=== PATIENT | female | born 1960 | race Caucasian/White ===

== ENCOUNTER 2020-06-23 23:24 | Emergency (ER) | payer BC ==
--- NOTE | 2020-06-24 00:22 | ER Document Report ---
ED Medical Screen (RME) - General Chief Complaint: Leg Pain Stated Complaint: LEFT LEG PAIN Time Seen by Provider: 06/24/20 00:10 Primary Care Provider: VERONICA NGO MD [Primary Care Provider] - Follow up as needed Mode of Arrival: Wheelchair Information source: Patient Notes: Patient is a 59-year-old female comes emergency room with multiple somatic complaints. Patient states that she sees Dr. Nunez who is sent her to the emergency room because she has been recently diagnosed with hypercalcemia and hyperparathyroidism. Patient states that she has aches and pains all over her body but primarily her right knee and left arm. She also has a history of hypertension depression, bipolar disease and alcohol use. Patient also is a smoker. She states he drinks between 4-5 beers almost every day but mostly 4-5 times a week. Patient states that she has been sent here by Dr. Nunez for evaluation of her hypercalcemia and for intervention to be done. Physical examination: Patient is a well-nourished well-developed 59-year-old female is in no apparent distress on examination tonight. Patient is very histrionic and has multiple complaints to include right knee pain left elbow pain and all body pains. Next line cardiac: Patient has a regular rate and rhythm without any murmurs. Lungs: Bilateral breath sounds breath sounds increased clear auscultation. Abdomen: Bowel sounds present all 4 quads nontender to palpate. Next Lower extremities. Examination patient's right knee in a sitting position does not show any laxity in any direction. She has good distal pulses on the right foot. Further examination shows there to be no crepitus felt with passive range of motion in a sitting position. Upper extremity right elbow. Again no notable swelling or edema to the right elbow full range of motion is noted no crepitus is felt. Distal pulses are normal. I have greeted and performed a rapid initial assessment of this patient. A comprehensive ED assessment and evaluation of the patient, analysis of test results and completion of the medical decision making process will be conducted by additional ED providers. Dictation of this chart was performed using voice recognition software; therefore, there may be some unintended grammatical errors. - Related Data Allergies/Adverse Reactions: hydrocodone bitartrate [From Vicodin] Allergy (Intermediate, Verified 06/23/20 23:49) itching Sulfa (Sulfonamide Antibiotics) Allergy (Intermediate, Verified 06/23/20 23:49) itching Contrast dye Allergy (Severe, Uncoded 07/27/11 11:14) Syncope Past Medical History - Social History Frequency of alcohol use: None Drug Abuse: None - Past Medical History Cardiac Medical History: Reports: Hx Hypertension Denies: Hx Coronary Artery Disease, Hx Heart Attack Pulmonary Medical History: Denies: Hx Asthma, Hx Bronchitis, Hx COPD, Hx Pneumonia Neurological Medical History: Denies: Hx Cerebrovascular Accident, Hx Seizures Musculoskeltal Medical History: Denies Hx Arthritis Past Surgical History: Denies: Hx Pacemaker - Immunizations Hx Diphtheria, Pertussis, Tetanus Vaccination: - unknown Physical Exam - Vital signs Vitals: Temp Pulse Resp BP Pulse Ox 97.4 F 73 16 158/78 H 99 06/23/20 23:34 06/23/20 23:34 06/23/20 23:34 06/23/20 23:34 06/23/20 23:34 Course - Vital Signs Vital signs: Temp Pulse Resp BP Pulse Ox 97.4 F 73 16 158/78 H 99 06/23/20 23:34 06/23/20 23:34 06/23/20 23:34 06/23/20 23:34 06/23/20 23:34 Doctor's Discharge - Discharge Referrals: VERONICA NGO MD [Primary Care Provider] - Follow up as needed
--- NOTE | 2020-06-24 02:21 | RADIOLOGY REPORT (SQ) ---
CLINICAL HISTORY: infection COMPARISON: None. TECHNIQUE: XR TIBIA FIBULA 2 VIEWS 06/24/2020 1:41 AM SPECIAL PROCEDURES TECH FINDINGS: There is no fracture. Joint spaces are preserved. Soft tissues are unremarkable. IMPRESSION: No acute osseous findings.
[2020-06-24 02:57] LABS: ABSOLUTE BASOPHILS # (AUTO) 0.1 10^3/uL (0.0-0.2); ABSOLUTE EOSINOPHILS # (AUTO) 0.5 10^3/uL (0.0-0.6); ABSOLUTE LYMPHOCYTES (AUTO) 2.6 10^3/uL (0.5-4.7); ABSOLUTE MONOCYTES (AUTO) 0.6 10^3/uL (0.1-1.4); ABSOLUTE NEUT (AUTO) 5.1 10^3/uL (1.7-8.2); EOSINOPHILS % (AUTO) 5.5 % (0-6); HEMATOCRIT 39.5 % (36.0-47.0); HEMOGLOBIN 13.7 g/dL (12.0-15.5); LYMPHOCYTES % (AUTO) 29.6 % (13-45); MEAN CORPUSCULAR HEMOGLOBIN 32.1 pg (27.0-33.4); MEAN CORPUSCULAR HGB CONC 34.6 g/dL (32.0-36.0); MEAN CORPUSCULAR VOLUME 93 fl (80-97); MONOCYTES % (AUTO) 6.9 % (3-13); PLATELET COUNT 224 10^3/uL (150-450); RED BLOOD COUNT 4.26 10^6/uL (3.72-5.28); RED CELL DISTRIBUTION WIDTH 13.7 % (11.5-14.0); TOTAL CELLS COUNTED % (AUTO) 100 %; WHITE BLOOD COUNT 8.9 10^3/uL (4.0-10.5)
[2020-06-24 03:05] LABS: ALBUMIN 4.3 g/dL (3.5-5.0); ALKALINE PHOSPHATASE 80 U/L (38-126); ANION GAP 11 (5-19); ASPARTATE AMINO TRANSFERASE 28 U/L (14-36); BILIRUBIN,DIRECT 0.2 mg/dL (0.0-0.4); BILIRUBIN,TOTAL 0.5 mg/dL (0.2-1.3); BLOOD UREA NITROGEN 17 mg/dL (7-20); CALCIUM 9.4 mg/dL (8.4-10.2); CARBON DIOXIDE 27 mmol/L (22-30); CHLORIDE 100 mmol/L (98-107); GLUCOSE 130 mg/dL (75-110); POTASSIUM 4.7 mmol/L (3.6-5.0); TOTAL PROTEIN 6.9 g/dL (6.3-8.2)
[2020-06-24] MEDS ORDERED: DOXYCYCLINE HYCLATE 100 MG TABLET PO ONE (08:04)
--- NOTE | 2020-06-24 08:12 | ER Document Report ---
ED Extremity Problem, Lower - General Chief Complaint: Leg Pain Stated Complaint: LEFT LEG PAIN Time Seen by Provider: 06/24/20 00:10 Primary Care Provider: VERONICA NGO MD [COMMUNITY BASED STAFF] - Follow up as needed Mode of Arrival: Wheelchair Notes: HPI: 59-year-old female who presents today with some redness to the anterior left lower hernadez/tibia region. She denies any trauma, fevers, vomiting, calf pain or leg swelling, chest pain or shortness of breath. Patient did see her primary care physician yesterday and was started on Keflex. She is only taken 1 dose. Patient was started on Metformin yesterday as well. Patient does take estrogen replacement therapy. No history of DVT/PE. 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 She is followed by specialist. She states that that is a chronic condition with no exacerbation. HUBER: See HPI All other review of systems reviewed and otherwise negative Reviewed vital signs and nursing note as charted by RN. PHYSICAL EXAM: CONSTITUTIONAL: Alert and oriented and responds appropriately to questions. Well-appearing; well-nourished HEAD: Normocephalic; atraumatic NECK: Supple without meningismus; non-tender; no cervical lymphadenopathy, no masses CARD: Regular rate and rhythm; no murmurs; symmetric distal pulses RESP: Normal chest excursion without splinting or tachypnea; breath sounds clear and equal bilaterally ABD/GI: Normal bowel sounds; non-distended; soft, non-tender BACK: The back appears normal and is non-tender to palpation EXT: Normal ROM in all joints; no obvious calf pain or leg swelling; no edema SKIN: Patient does have chronic appearing nonerythematous lesions to the lower extremity which she states have been there for extended period of time. She has a separate area to the left anterior distal tibia that is erythematous and blanching. Strong distal pulses. No other signs of lesions noted NEURO: CN 2-12 intact; 5/5 bilateral upper and lower extremity strength with sensation intact to light touch PSYCH: The patient's mood and manner are appropriate. Grooming and personal hygiene are appropriate. - Related Data Allergies/Adverse Reactions: hydrocodone bitartrate [From Vicodin] Allergy (Intermediate, Verified 06/23/20 23:49) itching Sulfa (Sulfonamide Antibiotics) Allergy (Intermediate, Verified 06/23/20 23:49) itching Contrast dye Allergy (Severe, Uncoded 07/27/11 11:14) Syncope Past Medical History - General Information source: Patient - Social History Smoking Status: Never Smoker Frequency of alcohol use: None Drug Abuse: None Family History: Reviewed & Not Pertinent - Past Medical History Cardiac Medical History: Reports: Hx Hypertension Denies: Hx Coronary Artery Disease, Hx Heart Attack Pulmonary Medical History: Denies: Hx Asthma, Hx Bronchitis, Hx COPD, Hx Pneumonia Neurological Medical History: Denies: Hx Cerebrovascular Accident, Hx Seizures Musculoskeletal Medical History: Denies Hx Arthritis Past Surgical History: Denies: Hx Pacemaker - Immunizations Hx Diphtheria, Pertussis, Tetanus Vaccination: - unknown Physical Exam - Vital signs Vitals: Temp Pulse Resp BP Pulse Ox 97.4 F 73 16 158/78 H 99 06/23/20 23:34 06/23/20 23:34 06/23/20 23:34 06/23/20 23:34 06/23/20 23:34 Course - Re-evaluation Re-evalutation: 06/24/20 08:11 Given the history and physical, basic laboratory work was ordered in triage. I will provide the patient a dose of doxycycline and I will order Doppler ultrasound of the left lower extremity. If this is unremarkable for DVT I will discharge the patient home on a course of antibiotics with strict return prec autions. 06/24/20 10:30 Doppler ultrasound shows no obvious DVT. No expansion of the erythema. Still no fevers or vomiting. I will change the patient's antibiotics from Keflex to doxycycline to expand coverage. Patient will be discharged home with strict return precautions and follow-up with the primary care physician. - Vital Signs Vital signs: Temp Pulse Resp BP Pulse Ox 97.4 F 73 16 155/76 H 100 06/23/20 23:34 06/24/20 06:13 06/23/20 23:34 06/24/20 06:13 06/24/20 06:13 - Laboratory Result Diagrams: 06/24/20 02:35 06/24/20 02:35 Laboratory results interpreted by me: 06/24/20 02:35 Glucose 130 H ALT 48 H Discharge - Discharge Clinical Impression: Cellulitis of leg Qualifiers: Laterality: left Qualified Code(s): L03.116 - Cellulitis of left lower limb Condition: Good Disposition: HOME, SELF-CARE Additional Instructions: Come back immediately for any increased redness, pain, swelling, fever, vomiting, or any other acute problems. Please follow-up with the primary care physician as discussed. Prescriptions: Doxycycline Hyclate 100 mg PO BID #20 tablet. Referrals: VERONICA NGO MD [COMMUNITY BASED STAFF] - Follow up as needed
[2020-06-24 11:04] VITALS: BP 152/83
--- NOTE | 2020-06-24 11:10 | RADIOLOGY REPORT (SQ) ---
EXAM DESCRIPTION: VENOUS UNILATERAL LOWER IMAGES COMPLETED DATE/TIME: 06/24/2020 10:44 am REASON FOR STUDY: 14; left lower leg COMPARISON: None. TECHNIQUE: Dynamic and static nunez scale and color images acquired of the left leg venous system. Se lected spectral images acquired with additional compression and augmentation maneuvers. The contralat eral common femoral vein and saphenofemoral junction were also imaged. Images stored on PACS. LIMITATIONS: None. FINDINGS: COMMON FEMORAL: Normal phasicity, compression and augmentation. No visualized echogenic ma terial on nunez scale. No defects on color images. FEMORAL: Normal compression and augmentation. No visualized echogenic material on nunez scale. No defe cts on color images. POPLITEAL: Normal compression, augmentation. No visualized echogenic material on nunez scale. No defec ts on color images. CALF VESSELS: Normal compression, augmentation. No visualized echogenic material on nunez scale. No de fects on color images. GSV and SSV: Normal compression, augmentation. No visualized echogenic material on nunez scale. No def ects on color images. ANY DEEP VENOUS INSUFFICIENCY: No. ANY EVIDENCE OF POPLITEAL CYST: No. OTHER: No other significant finding. CONTRALATERAL COMMON FEMORAL VEIN AND SAPHENOFEMORAL JUNCTION: Normal phasicity, compression and augmentation. No visualized echogenic material on nunez scale. No de fects on color images. IMPRESSION: NO EVIDENCE DVT OR SVT IN THE LEFT LEG. TECHNICAL DOCUMENTATION: JOB ID: [id number] 2010 [employer]- All Rights Reserved Reading location - IP/workstation name: [email or web address]
--- OUTSIDE RECORDS SUMMARY | 2020-06-25 18:02 | XMS REPORT ---
:1960 Author [facility] Address [facility] [address] [place] [address] Care Team Providers Name Role Phone ROS Primary Care Physician Unavailable Allergies, Adverse Reactions, Alerts Allergy Allergy Status Severity Reaction(s) Onset Inactive Treating C omments Name Type Date Date Clinician Iodinated Propensity Inactive 2017-08 Contrast- to adverse 09-10 Oral And Iv reactions 00:00: Dye 00 Sulfur Propensity Active 2017-08 to adverse - reactions 00:00: 00 Hydrocodone Propensity Inactive 2017-08 -Acetaminop to adverse 09-10 hen reactions 00:00: 00 Iodinated Propensity Inactive 2017-08 Contrast- to adverse - Oral And Iv reactions 00:00: Dye 00 Iodinated Propensity Active 2017-08 Contrast to adverse - Media reactions 00:00: 00 Sulfa Propensity Active Low Itching 2013-08 (Sulfonamid to adverse - e reactions 00:00: Antibiotics 00 ) Hydrocodone Propensity Active Low Itching 2013-08 -Acetaminop to adverse -26 hen reactions 00:00: 00 Doxycycline Propensity Active Low 2013- O ther to adverse 9-14 react ion( reactions 00:00: s): 00 Itching Sulfamethaz Propensity Active Low 2013- O ther ine to adverse 9-14 react ion( reactions 00:00: s): 00 Itching Iodinated Allergy to Active 2013- Contrast substance 4-22 Media 00:00: 00 Sulfa Allergy to Active 2013- (Sulfonamid substance 4-22 e 00:00: Antibiotics 00 ) Vicodin Allergy to Active Itching 2013- substance 4-22 00:00: 00 Medications Ordered Filled Start Stop Current Ordering Indication Dosage Frequency Signature Comments Components Medication Medication Date Date Medication? Clinician (SIG) Name Name metroNIDAZO 2018-08 Yes Rosacea APPLY TO AP PLY TO LE 2-02 THE THE (METROCREAM 00:00: AFFECTED AFFE CTED ) 0.75 % 00 AREA TWICE AREA cream DAILY TWICE DAILY doxycycline Yes Rosacea TAKE 1 TAKE 1 (ADOXA) 50 6-03 TABLET BY TABLE T BY MG tablet 00:00: MOUTH MOUTH 00 EVERY DAY EVERY DAY doxycycline 2019- No Rosacea TAKE 1 TAKE 1 (ADOXA) 50 5-06 06-03 TABLET BY TABLE T BY MG tablet 00:00: 00:00 MOUTH MOUTH 00 :00 EVERY DAY EVERY DAY hydroxychlo Yes Granuloma TAKE 1 TA KE 1 roquine 3-12 annulare TABLET BY TABLE T BY (PLAQUENIL) 00:00: MOUTH MOUTH 200 mg 00 TWICE TWICE tablet DAILY DAILY doxycycline 2017-08 No Rosacea 50MG Take 1 Take 1 (ADOXA) 50 -28 tablet (50 tabl et MG tablet 00:00: mg total) (50 m g 00 by mouth total) by daily. mouth daily. metroNIDAZO 2017-08 2019- No Rosacea Apply Apply LE 09-10 topically topically (METROCREAM 00:00: 00:00 Two (2) Two ( 2) ) 0.75 % 00 :00 times a times a cream day. day. hydroxychlo 2017-08 2019- No Granuloma 200MG Take 1 Ta ke 1 roquine 09-10 annulare tablet tablet (PLAQUENIL) 00:00: 23:59 (200 mg (200 mg 200 mg 00 :00 total) by total) by tablet mouth Two mouth Two (2) times (2) times a day. a day. LORazepam 2017-08 Yes 2mg Take 2 mg Take 2 mg (ATIVAN) 2 09-08 by mouth by loretta th MG tablet 00:00: once once 00 daily. daily. mirtazapine 2017-08 Yes 15mg Take 15 mg Ta ke 15 (REMERON) 0-04 by mouth mg by 15 MG 00:00: daily. mouth tablet 00 daily. losartan 2017-08 Yes 100mg Take 100 Take 10 0 (COZAAR) 0-01 mg by mg by 100 MG 00:00: mouth mouth tablet 00 daily. daily. spironolact Yes 50mg Take 50 mg Ta ke 50 one 9-28 by mouth mg by (ALDACTONE) 00:00: Two (2) mouth Two 50 MG 00 times a (2) times tablet day. a day. aspirin 2008-0 Yes 81mg Take 81 mg Take 8 1 (ADULT LOW 2-20 by mouth. mg by DOSE 00:00: mouth. ASPIRIN) 81 00 MG tablet Align 4 mg No Align 4 mg capsule capsule Take by Take by oral route. oral route. 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 desloratadi No desloratad ne 5 mg ine 5 mg tablet take tablet 1 tablet by take 1 mouth once tablet by daily mouth once daily doxepin 50 No doxepin 50 mg capsule mg capsule TK 1 C PO TK 1 C PO QD HS QD HS doxycycline No doxycyclin monohydrate e 50 mg monohydrat tablet TK 1 e 50 mg T PO QD tablet TK 1 T PO QD duloxetine No duloxetine 60 mg 60 mg capsule,del capsule,de ayed layed release TK release TK 1 C PO QD 1 C PO QD epinephrine No epinephrin 0.3 mg/0.3 e 0.3 mL mg/0.3 mL injection, injection, auto-inject auto-injec or PRN tor PRN lorazepam 2 No lorazepam mg tablet 2 mg TK 1 T PO tablet TK QD HS PRN 1 T PO QD HS PRN losartan No losartan 100 mg 100 mg tablet TK 1 tablet TK T PO QD 1 T PO QD meloxicam No meloxicam 7.5 mg 7.5 mg tablet TK 1 tablet TK T PO BID WC 1 T PO BID WC metoprolol No metoprolol tartrate 25 tartrate mg tablet 25 mg TK 1 T PO tablet TK BID 1 T PO BID metronidazo No metronidaz le 0.75 % ole 0.75 % topical topical cream cream naproxen No naproxen 500 mg 500 mg tablet tablet spironolact No spironolac one 50 mg tone 50 mg tablet TAKE tablet 1 TABLET BY TAKE 1 MOUTH TWICE TABLET BY A DAY MOUTH TWICE A DAY triamcinolo No triamcinol ne one acetonide acetonide 0.1 % 0.1 % topical topical cream cream Lexette No Lexette 0.05 % 0.05 % topical topical foam foam Oracea 40 No Oracea 40 mg mg capsule,imm capsule,im ediate - mediate - delay delay release release Soolantra 1 No Soolantra % topical 1 % cream topical cream benzonatate No benzonatat 200 mg e 200 mg capsule TK capsule TK ONE C PO ONE C PO TID PRF TID PRF CNC CNC cefdinir No cefdinir 300 mg 300 mg capsule capsule duloxetine No duloxetine 30 mg 30 mg capsule,del capsule,de ayed layed release TK release TK 3 CS PO QD 3 CS PO QD valacyclovi No valacyclov r 500 mg ir 500 mg tablet tablet azithromyci No azithromyc n 500 mg in 500 mg tablet TK 1 tablet TK T PO QD WF 1 T PO QD FOR 5 DAYS WF FOR 5 DAYS Hydromet 5 No Hydromet 5 mg-1.5 mg/5 mg-1.5 mL oral mg/5 mL syrup TK oral syrup 5ML PO Q TK 5ML PO 4-6 HOURS Q 4-6 PRN HOURS PRN montelukast No montelukas 10 mg t 10 mg tablet TK 1 tablet TK T PO QD 1 T PO QD ondansetron No ondansetro 4 mg n 4 mg disintegrat disintegra ing tablet ting DIS ONE T tablet DIS PO Q 6 H ONE T PO Q PRN NV 6 H PRN NV Ventolin No Ventolin HFA 90 HFA 90 mcg/actuati mcg/actuat on aerosol ion inhaler INL aerosol 2 PFS PO inhaler QID FOR INL 2 PFS BREATHING PO QID FOR BREATHING Problems Condition Condition Condition Status Onset Resolution Last Treatin g Comments Name Details Category Date Date Treatment Clinician Date Lumbosacral Lumbosacral Problem Active 2018-08 spondylosis Spondylosis 1-19 without without 00:00: myelopathy Myelopathy 00 Sleep apnea Sleep apnea Condition Active 2013-082018-10-14 2-21 20:04:25 00:00: 00 MS MS [id number] Active 2013-082018-10-14 (multiple (multiple 1-26 20:04:25 sclerosis) sclerosis) 00:00: 00 Major Major [id number] Active 2018-10-14 depression depression 05-01 20:04:25 00:00: 00 PTSD PTSD [id number] Active 2018-10-14 (post-traum (post-traum 05-01 20:04:25 atic stress atic stress 00:00: disorder) disorder) 00 Family Family Problem Active history of History of 12-03 diabetes Diabetes 00:00: mellitus Mellitus 00 Anemia Anemia Problem Active 12-03 00:00: 00 Disorder of Disorder of Problem Active nervous Nervous 12-03 system System 00:00: 00 Neck pain Neck Pain Problem Active 12-03 00:00: 00 Pain in Pain in Problem Active thoracic Thoracic 12-03 spine Spine 00:00: 00 Low back Low Back Problem Active pain Pain 12-03 00:00: 00 Sleep apnea Sleep Apnea Problem Active 12-03 00:00: 00 History of History of Problem Active cardiovascu Cardiovascu 12-03 lar disease lar Disease 00:00: 00 Family Family Problem Active history of History of 12-03 Arthritis Arthritis 00:00: 00 Procedures Procedure Date / Time Performed Performing Clinician Devic e lumbar radiofrequency 2019-07-23 00:00:00 lesioning (PROC) AMB REFERRAL TO DERMATOLOGY 2018-07-11 16:49:20 Alonso Talbert REMOVAL OF TONSILS DELIVERY Hysterectomy Results This patient has no known results. Assessments Condition Name Status Diagnosis Date Treating Clinici an Low back pain Active 2019-12-10 14:12:30 Lumbosacral spondylosis without Active 2019-12-10 14:12 :32 myelopathy Low back pain Active 2019-10-22 14:17:28 Lumbosacral spondylosis without Active 2019-10-22 14:17 :29 myelopathy Low back pain Active 2019-07-23 12:52:00 Lumbosacral spondylosis without Active 2019-07-23 12:52 :00 myelopathy Low back pain Active 2019-07-16 10:46:56 Lumbosacral spondylosis without Active 2019-07-16 10:46 :58 myelopathy Low back pain Active 2019-07-02 15:10:53 Lumbosacral spondylosis without Active 2019-07-02 15:11 :23 myelopathy Encounters Start End Encounter Admission Attending Care Care Encounter ID Date/Time Date/Time Type Type Clinicians Facility Department 2019-12-10 2019-12-10 [facility] 9 [id number] 00:00:00 00:00:00 DO Ramez: Violetta rivera , P.A. [address] [place] [id number], Ph. 2019-11-01 2019-11-01 [facility]patient [facility] [id number] 00:00:00 00:00:00 2019-11-01 2019-11-01 Outpatient [facility] [id number] 00:00:00 00:00:00 2019-10-22 2019-10-22 Aman Tejada [facility] 9 [id number] 00:00:00 00:00:00 Ramez, DO: Violetta rivera , P.A. [address] [place] [id number], Ph. 2019-07-23 2019-07-23 Aman Tejada [facility] 9 [id number] 00:00:00 00:00:00 Ramez, DO: Violetta rivera , P.A. [address] [place] [id number], Ph. 2019-07-16 2019-07-16 Aman Tejada [facility] 9 [id number] 00:00:00 00:00:00 Ramez, DO: Geovani rivera. , P.A. [address] [place] [id number], Ph. 2019-07-12 2019-07-12 Outpatient [facility] [id number] 00:00:00 00:00:00 2019-07-02 2019-07-02 Aman Tejada [facility] 9 [id number] 00:00:00 00:00:00 Ramez, DO: Geovani rivera. , P.A. [address] [place] [id number], Ph. 2019-01-14 2019-01-14 Outpatient [facility] [id number] 00:00:00 00:00:00 2018-10-15 2018-10-15 [facility] [id number] 00:00:00 23:59:00 [id number] 2018-09-06 2018-09-06 [facility] [id number] 00:00:00 00:00:00 2018-08-27 2018-08-27 [facility] [id number] 00:00:00 00:00:00 2018-07-13 2018-07-13 Outpatient [facility] [id number] 00:00:00 00:00:00 2018-07-11 2018-07-11 Outpatient [facility] [id number] 14:51:22 16:20:56 2018-07-11 2018-07-11 Outpatient [facility] [id number] 14:51:22 16:20:56 [id number] 2018-07-11 2018-07-11 [facility] [id number] 00:00:00 00:00:00 [id number] Immunizations Ordered Immunization Filled Immunization Date Status Commen ts Refusal Reason Name Name ZOSTAVAX - ZOSTER 2018-06-27 Completed VACCINE, LIVE, SQ 00:00:00 Influenza Virus 2018-06-10 Completed Vaccine, unspecified 00:00:00 formulation influenza, injectable, 2018-05-14 Completed quadrivalent 00:00:00 Influenza Virus 2017-05-18 Completed Vaccine, unspecified 00:00:00 formulation PNEUMOCOCCAL 2017-04-10 Completed POLYSACCHARIDE 23 00:00:00 Pneumococcal Conjugate 2016-07-11 Completed 13-Valent 00:00:00 Payers Payer Name Policy Type Policy Number Effective Date Expiration D ate [employer] BLUE [id number] 2017 00:00:00 OPTIONS/PPO/ADV Plan of Treatment Planned Activity Planned Date Details Comments Future Scheduled Test [code = ] Future Scheduled Test [code = ] Future Scheduled Test [code = ] Future Scheduled Test [code = ] Future Scheduled Test [code = ] Future Scheduled Test [code = ] Future Scheduled Test [code = ] Future Scheduled Test [code = ] Future Scheduled Test [code = ] Future Scheduled Test [code = ] Future Scheduled Test [code = ] Future Scheduled Test [code = ] Future Scheduled Test [code = ] Future Scheduled Test [code = ] Future Scheduled Test [code = ] Future Scheduled Test [code = ] Future Scheduled Test [code = ] Future Scheduled Test [code = ] Future Scheduled Test [code = ] Future Scheduled Test [code = ] Future Scheduled Test [code = ] Future Scheduled Test [code = ] Future Scheduled Test [code = ] Future Scheduled Test [code = ] Social History Social Habit Start Date Stop Date Comments Tobacco smoking status [facility] 2018-07-11 00:00:00 2018-07-11 00:00 :00 Smoking Status Start Date Stop Date Never Smoker Vital Signs Vital Name Observation Time Observation Value Comments Height 2019-12-10 00:00:00 64 [in_i] BMI (Body Mass Index) 2019-12-10 00:00:00 35 kg/m2 BP Systolic 2019-12-10 00:00:00 122 mm[Hg] Body Weight 2019-12-10 00:00:00 204 [lb_av] BP Diastolic 2019-12-10 00:00:00 74 mm[Hg] BP Diastolic 2019-10-22 00:00:00 77 mm[Hg] Height 2019-10-22 00:00:00 64 [in_i] BMI (Body Mass Index) 2019-10-22 00:00:00 35 kg/m2 BP Systolic 2019-10-22 00:00:00 132 mm[Hg] Body Weight 2019-10-22 00:00:00 204 [lb_av] BP Diastolic 2019-07-23 00:00:00 80 mm[Hg] Height 2019-07-23 00:00:00 64 [in_i] BMI (Body Mass Index) 2019-07-23 00:00:00 35 kg/m2 BP Systolic 2019-07-23 00:00:00 138 mm[Hg] Body Weight 2019-07-23 00:00:00 204 [lb_av] BP Diastolic 2019-07-16 00:00:00 76 mm[Hg] Height 2019-07-16 00:00:00 64 [in_i] BMI (Body Mass Index) 2019-07-16 00:00:00 35 kg/m2 BP Systolic 2019-07-16 00:00:00 115 mm[Hg] Body Weight 2019-07-16 00:00:00 204 [lb_av] BP Diastolic 2019-07-02 00:00:00 80 mm[Hg] Height 2019-07-02 00:00:00 64 [in_i] BMI (Body Mass Index) 2019-07-02 00:00:00 35 kg/m2 BP Systolic 2019-07-02 00:00:00 120 mm[Hg] Body Weight 2019-07-02 00:00:00 204 [lb_av] Hospital Discharge Instructions 1. Low back pain back care and preventing injuries: care instructions getting back to normalafter low back pain: care instructions learning about relief for back pain 2. Lumbosacral spondylosis without myelopathy low back arthritis: exercises Discussion Note: None recorded.1. Low back pain back care and preventing injuries: care instructions getting back to normalafter low back pain: care instructions learning about relief for back pain 2. Lumbosacral spondylosis without myelopathy low back arthritis: exercises Discussion Note: None recorded.1. Low back pain back care and preventing injuries: care instructions getting back to normalafter low back pain: care instructions learning about relief for back pain 2. Lumbosacral spondylosis without myelopathy low back arthritis: exercises W-Interventional Pain Procedure Discharge Instructions W-[facility] Block Handout Discussion Note: None recorded.
== END 2020-06-24 11:04 | disposition home or self-care (01) ==
LOC: ER 23:24
DX: L03.116 Cellulitis of left lower limb (principal); Z79.899 Other long term (current) drug therapy; L92.0 Granuloma annulare; I10 Essential (primary) hypertension; Z88.6 Allergy status to analgesic agent; Z88.5 Allergy status to narcotic agent; Z88.2 Allergy status to sulfonamides; Z91.041 Radiographic dye allergy status
CPT/HCPCS: 36415; 80053; 83605; 85025; 87040; 93971; 99285

== ENCOUNTER 2020-07-02 07:01 | Day surgery (SDC) | payer BC ==
[2020-06-29 14:52] LABS: HEMATOCRIT 40.7 % (36.0-47.0); HEMOGLOBIN 13.7 g/dL (12.0-15.5); MEAN CORPUSCULAR HEMOGLOBIN 31.3 pg (27.0-33.4); MEAN CORPUSCULAR HGB CONC 33.6 g/dL (32.0-36.0); MEAN CORPUSCULAR VOLUME 93 fl (80-97); PLATELET COUNT 232 10^3/uL (150-450); RED BLOOD COUNT 4.36 10^6/uL (3.72-5.28); RED CELL DISTRIBUTION WIDTH 13.4 % (11.5-14.0); WHITE BLOOD COUNT 6.5 10^3/uL (4.0-10.5)
[2020-06-29 15:20] LABS: ANION GAP 11 (5-19); BLOOD UREA NITROGEN 21 mg/dL (7-20); CALCIUM 9.8 mg/dL (8.4-10.2); CARBON DIOXIDE 25 mmol/L (22-30); CHLORIDE 102 mmol/L (98-107); GLUCOSE 102 mg/dL (75-110)
--- NOTE | 2020-06-29 15:47 | EKG REPORT ---
SEVERITY:- NORMAL ECG - SINUS RHYTHM : Confirmed by: Ginna Flynn MD 29-Jun-2020 15:46:47
[~2020-07-02 07:01] MED LIST: ACETAMINOPHEN 325 MG TABLET PO PRN; LACTATED RINGERS 1000 ML IV PRN; LIDOCAINE 0.5% INJ-PF (5 MG/ML) 50 ML SDV SUBCUT PRN
[2020-07-02] MEDS ORDERED: PROPOFOL INJ 200 MG/20 ML VIAL IV ONE (07:02)
--- NOTE | 2020-07-02 08:30 | Discharge Summary ---
Discharge Summary (SDC) - Discharge Final Diagnosis: Normal colonoscopy Date of Surgery: 07/02/20 Discharge Date: 07/02/20 Condition: Good Treatment or Instructions: Resume preoperative medications, diet, activity; follow-up with Dr. Hdz at [facility] in 2 weeks Referrals: MASSIEL SHEPARD MD [Primary Care Provider] - Discharge Diet: As Tolerated Respiratory Treatments at Home: Deep Breathing/Coughing Discharge Activity: Activity As Tolerated, No Driving Home Care Assistance: None Needed Report the Following to Your Physician Immediately: Shortness of Breath, Nausea, Vomiting, Increase in Pain, Fever over 101 Degrees, Unusual Bleeding, IV Site Infection Signs
--- NOTE | 2020-07-02 08:32 | Operative Report ---
Operative Report DATE OF SURGERY: 07/02/20 PREOPERATIVE DIAGNOSIS: Screening for colon and rectal carcinoma POSTOPERATIVE DIAGNOSIS: Normal colonoscopy OPERATION: Total colonoscopy to cecum SURGEON: ADILENE GARCIA ANESTHESIA: LMAC TISSUE REMOVED OR ALTERED: None COMPLICATIONS: None ESTIMATED BLOOD LOSS: None INTRAOPERATIVE FINDINGS: See below PROCEDURE: Obtaining informed consent the patient was taken from the preoperative holding area to the main endoscopy suite where monitoring devices were attached to the patient. Plan and surgical timeout were conducted The patient was placed in the left lateral decubitus position with knees to chest. A perianal examination was performed. There was no visible or palpable anorectal pathology. Sphincter tone was felt to be normal. The flexible adult colonoscope was advanced through the anal rectal canal, all the way to the cecum. Visualization of the cecum was achieved by demonstration of the ileocecal valve, the appendiceal orifice and transillumination of the anterior abdominal wall. This was a good study on a fairly well-prepped bowel. There was a liquid feces requiring aggressive aspiration and suctioning. Therefore visualization of the mucosa was limited in areas. Nonetheless, no significant pathology was seen. The colonoscope was withdrawn slowly and methodically checked and the mucosa carefully. There was no evidence of tumor, stricture, bleeding or polyp. There was no evidence of diverticuloses. The scope was slowly withdrawn through the anal rectal canal. Complete visualization of the rectum was achieved with photodocumentation. The scope was withdrawn to the patient's anus. The patient tolerated the procedure well and was taken to the recovery area in stable condition. Per surveillance guidelines, patient will be an appropriate candidate for follow-up colonoscopy in [7-10] years.
[2020-07-02 09:06] VITALS: BP 112/65
== END 2020-07-02 09:05 | disposition home or self-care (01) ==
LOC: END 07:01
PROVIDERS: ATTEND Surgery
DX: Z12.11 Encounter for screening for malignant neoplasm of colon (principal); Z86.010 Personal history of colon polyps; Z80.0 Family history of malignant neoplasm of digestive organs; Z20.828 Contact with and (suspected) exposure to other viral communicable diseases; I10 Essential (primary) hypertension; F41.9 Anxiety disorder, unspecified; F32.9 Major depressive disorder, single episode, unspecified; L68.0 Hirsutism; G47.30 Sleep apnea, unspecified; Z79.899 Other long term (current) drug therapy
CPT/HCPCS: 45378; 93005; 36415; 82962; 85027; 80048; 93010; U0003; J2704; C9803; 812; 87635